=== PATIENT | male | born 1980 | race African-American/Black ===

== ENCOUNTER 2020-06-10 21:11 | Inpatient (IN) | payer OTHER ==
[~2020-06-10] VITALS: Ht 172.7 cm; Wt 78.0 kg
--- NOTE | 2020-06-10 21:36 | PHYS DOC ---
General Adult HPI: HPI: ".. I hurting.. since yesterday.. it been constant.. just getting worse...it was all over.. but now more in lower abdomen..." Patient is a 39 year old male employee who presents with above hx and complaints generalized abdomen pain, nausea, vomiting, there is some localization lower pelvic. No history of kidney stone. No history of colitis. No history of recent travel outside the [place] area no history of trauma. No history of bad food. Patient's not had pain like this before. Pain seems to start more on left of umbilicus but now seems to be across the lower abdomen. No history of previous surgeries. Admits to drinking heavily (ETOH) x 2 days prior to onset of abdomen pain. No history of colitis with him or family members. No history of kidney stones with him or family members. He denies p revious history of pancreatitis , colitis, gall bladder issues. . Patient denies any history of gallbladder disease. No recent travel. No assignments overseas. No specific ill contacts. Normally healthy. Review of Systems: Review of Systems: Constitutional: Denies fever or chills Eyes: Denies change in visual acuity HENT: Denies nasal congestion or sore throat Respiratory: Denies cough or shortness of breath Cardiovascular: Denies chest pain or edema GI: Complains of severe generalized abdominal pain, nausea. Denies, vomiting, bloody stools or diarrhea : Denies dysuria Musculoskeletal: Denies back pain or joint pain Integument: Denies rash Neurologic: Denies headache, focal weakness or sensory changes Endocrine: Denies polyuria or polydipsia Lymphatic: Denies swollen glands Psychiatric: Denies depression or anxiety Family History: Family History: Noncontributory to presentation Current Medications: Current Meds: See nursing for home meds Allergies: Allergies: No known drug allergies Physical Exam: PE: Constitutional: Well developed, well nourished, in acute distress, non-toxic appearance. [] HENT: Normocephalic, atraumatic, bilateral external ears normal, oropharynx dry,, no oral exudates, nose normal. [] Eyes: PERRLA, EOMI, conjunctiva normal, no discharge. [] Neck: Normal range of motion, no tenderness, supple, no stridor. [] Cardiovascular:Heart rate regular rhythm, no murmur [] Lungs & Thorax: Bilateral breath sounds clear to auscultation [] Abdomen: Bowel sounds hyperactive, soft, generalized tenderness, some rebound to lower abdomen below the umbilicus, distended, no masses, no pulsatile masses. [] Skin: Warm, dry, no erythema, no rash. [] Back: No tenderness, no CVA tenderness. [] Extremities: No tenderness, no cyanosis, no clubbing, ROM intact, no edema. No psoas sign. Neurologic: Alert and oriented X 3, normal motor function, normal sensory function, no focal deficits noted. [] Psychologic: Affect anxious, judgement normal, mood normal. [] EKG: EKG: [] Radiology/Procedures: Radiology/Procedures: [address] [id number] IMAGING REPORT Signed PATIENT: ANALY CASTILLO S ACCOUNT: [id number] : 1980 LOCATION: ER AGE: 39 SEX: M EXAM STATUS: REG ER ORD. PHYSICIAN: TEJA FENG MD REASON: Severe abdomen pain, nausea, vomiting PROCEDURE: ACUTE ABDOMEN SERIES Exam: Acute abdominal series INDICATION: Severe abdominal pain TECHNIQUE: Frontal view of chest with upright and supine views of the abdomen Comparisons: None FINDINGS: The cardiomediastinal silhouette and pulmonary vessels are within normal limits. The lung and pleural spaces are clear. Mildly dilated loop of small bowel noted in the left upper quadrant. No suspicious masses or calcifications. Visualized osseous structures are unremarkable. IMPRESSION: 1. Single focally dilated loop of small bowel in the left upper quadrant may relate to enteritis or developing obstruction. 2. No acute cardiopulmonary process. Electronically signed by: Malcolm Swift MD (06/10/2020 10:49 PM) [facility] DICTATED AND SIGNED BY: MALCOLM SWIFT MD DATE: 06/10/202247 CC: TEJA FENG MD; PCP,NO ~MTH0 0 48 IMAGING REPORT Signed PATIENT: ANALY CASTILLO S ACCOUNT: [id number] : 1980 LOCATION: ER AGE: 39 SEX: M EXAM STATUS: REG ER ORD. PHYSICIAN: TEJA FENG MD REASON: lower pelvic pain, nausea and vomiting Omni 300 60cc PROCEDURE: CT ABD PELV W/ORAL&IV CONTRAST Exam: CT abdomen/pelvis with intravenous contrast Indication: Lower pelvic pain, nausea and vomiting Comparison: None Technique: Helical CT imaging performed of the abdomen and pelvis after the intravenous administration of contrast. Sagittal and coronal reformats were obtained. One or more of the following individualized dose reduction techniques were utilized for this examination: 1. Automated exposure control 2. Adjustment of the mA and/or kV according to patient size 3. Use of iterative reconstruction technique. Findings: Lower chest: Lung bases are clear. Heart is normal in size. Liver: Normal. Gallbladder/Biliary Tree: Normal. Pancreas: The pancreas is edematous but enhances homogeneously. There is moderate peripancreatic fluid and fat stranding. No organized fluid collection. Spleen: Normal. Adrenal Glands: Normal. Kidneys/Ureters/Bladder: Kidneys are normal in size and enhance symmetrically. No hydronephrosis. Ureters and bladder are normal. Reproductive Organs: Normal. Stomach, small bowel, and colon: Stomach is distended with contrast. No small bowel obstruction. There is diffuse colonic wall thickening. Vasculature: Abdominal aorta is normal in caliber. Lymph Nodes: No lymphadenopathy. Peritoneum and retroperitoneum: Small amount of free fluid in the upper abdomen. No free air. Bones: No acute osseous abnormality there is a right paracentral disc protrusion at L2-3 L4 causing right lateral recess narrowing. Broad-based disc bulge at L4-L5 causing canal narrowing. No acute osseous abnormality. Miscellaneous: Bilateral inguinal hernias. Impression: 1. Uncomplicated acute pancreatitis. 2. Diffuse colonic wall thickening could be reactive or colitis. 3. Small bilateral fat-containing inguinal hernias. 4. Mild degenerative disc diseases with disc bulges or protrusions at L3-L4 and L4-L5. Electronically signed by: Rylee Perales MD (06/11/2020 12:50 AM) [id number] DICTATED AND SIGNED BY: RYLEE PERALES MD DATE: 06/11/20 0042 CC: TEJA FENG MD; PCP,NO ~MTH0 0 [][] [] Heart Score: Risk Factors: Risk Factors: DM, Current or recent (<one month) smoker, HTN, HLP, family history of CAD, obesity. Risk Scores: Score 0 - 3: 2.5% MACE over next 6 weeks - Discharge Home Score 4 - 6: 20.3% MACE over next 6 weeks - Admit for Clinical Observation Score 7 - 10: 72.7% MACE over next 6 weeks - Early Invasive Strategies Course & Med Decision Making: Course & Med Decision Making Pertinent Labs and Imaging studies reviewed. (See chart for details) Discussed presentation testing and treatment plan with Dr. Pelon Sierra. Admit to his service, NPO, pain meds and fluids. Impression: 1. Abdomen Pain 2. Alcohol induced pancreatitis 3. Dehydration 4. Elevated Lipase 5010, Amylase 438 [] Dragon Disclaimer: Dragon Disclaimer: This electronic medical record was generated, in whole or in part, using a voice recognition dictation system. Departure Departure: Referrals: PCP,NO (PCP) Dragon Disclaimer This chart was dictated in whole or in part using Voice Recognition software in a busy, high-work load, and often noisy Emergency Department environment. It may contain unintended and wholly unrecognized errors or omissions. Dragon Disclaimer This chart was dictated in whole or in part using Voice Recognition software in a busy, high-work load, and often noisy Emergency Department environment. It may contain unintended and wholly unrecognized errors or omissions. Dragon Disclaimer This chart was dictated in whole or in part using Voice Recognition software in a busy, high-work load, and often noisy Emergency Department environment. It may contain unintended and wholly unrecognized errors or omissions. TEJA FENG MD Jun 10, 2020 21:36
[2020-06-10] MEDS ORDERED: FAMOTIDINE 20 MG/2 ML VIAL IVP ONE (21:45)
[2020-06-10] MEDS ORDERED: IV RINGERS SOLUTION,LACTATED 1,000 ML IV SCH (21:45)
[2020-06-10] MEDS ORDERED: MORPHINE SULFATE 10 MG/ML SYRINGE. SQ ONE (21:45)
[2020-06-10 22:45] LABS: BASO % 0 % (0-3); EOS % 0 % (0-3); HEMATOCRIT 42.1 % (39.0-53.0); HEMOGLOBIN 13.9 g/dL (13.0-17.5); LYMPH # 0.4 x10^3/uL (1.0-4.8); LYMPH % 4 % (24-48); MEAN CORPUSCULAR HEMOGLOBIN 30 pg (25-35); MEAN CORPUSCULAR HGB CONC 33 g/dL (31-37); MEAN CORPUSCULAR VOLUME 90 fL (79-100); MONO # 0.6 x10^3/uL (0.0-1.1); MONO % 5 % (0-9); NEUT % 91 % (31-73); PLATELET COUNT 215 x10^3/uL (140-400); RED CELL DISTRIBUTION WIDTH 13.8 % (11.5-14.5)
--- NOTE | 2020-06-10 22:52 | RAD ---
Exam: Acute abdominal series INDICATION: Severe abdominal pain TECHNIQUE: Frontal view of chest with upright and supine views of the abdomen Comparisons: None FINDINGS: The cardiomediastinal silhouette and pulmonary vessels are within normal limits. The lung and pleural spaces are clear. Mildly dilated loop of small bowel noted in the left upper quadrant. No suspicious masses or calcific ations. Visualized osseous structures are unremarkable. IMPRESSION: 1. Single focally dilated loop of small bowel in the left upper quadrant may relate to enteritis or developing obstruction. 2. No acute cardiopulmonary process. Electronically signed by: Malcolm Carreno MD (06/10/2020 10:49 PM) [facility]
[2020-06-10] MEDS ORDERED: IOHEXOL 240 MG/ML 50ML VIAL. PO ONE (23:00)
[2020-06-10] MEDS ORDERED: IOHEXOL 300 MG/ML 75 ML VIAL. IV ONE (23:00)
[2020-06-10] MEDS ORDERED: ONDANSETRON PF 4 MG/2 ML VIAL. IVP ONE (23:00)
[2020-06-10 23:16] LABS: CALCIUM 9.3 mg/dL (8.5-10.1); CREATININE 1.6 mg/dL (0.7-1.3); GFR 58.5
[2020-06-10 23:19] LABS: ALBUMIN 3.9 g/dL (3.4-5.0); DIRECT BILIRUBIN 0.2 mg/dL (0.0-0.2); TOTAL PROTEIN 8.4 g/dL (6.4-8.2)
[2020-06-11] MEDS ORDERED: MORPHINE SULFATE 10 MG/ML SYRINGE. SQ ONE (00:45)
--- NOTE | 2020-06-11 00:52 | RAD ---
Exam: CT abdomen/pelvis with intravenous contrast Indication: Lower pelvic pain, nausea and vomiting Comparison: None Technique: Helical CT imaging performed of the abdomen and pelvis after the intravenous administratio n of contrast. Sagittal and coronal reformats were obtained. One or more of the following individualized dose reduction techniques were utilized for this examinat ion: 1. Automated exposure control 2. Adjustment of the mA and/or kV according to patient size 3. Use of iterative reconstruction technique. Findings: Lower chest: Lung bases are clear. Heart is normal in size. Liver: Normal. Gallbladder/Biliary Tree: Normal. Pancreas: The pancreas is edematous but enhances homogeneously. There is moderate peripancreatic flui d and fat stranding. No organized fluid collection. Spleen: Normal. Adrenal Glands: Normal. Kidneys/Ureters/Bladder: Kidneys are normal in size and enhance symmetrically. No hydronephrosis. Ure ters and bladder are normal. Reproductive Organs: Normal. Stomach, small bowel, and colon: Stomach is distended with contrast. No small bowel obstruction. Ther e is diffuse colonic wall thickening. Vasculature: Abdominal aorta is normal in caliber. Lymph Nodes: No lymphadenopathy. Peritoneum and retroperitoneum: Small amount of free fluid in the upper abdomen. No free air. Bones: No acute osseous abnormality there is a right paracentral disc protrusion at L2-3 L4 causing r ight lateral recess narrowing. Broad-based disc bulge at L4-L5 causing canal narrowing. No acute osse ous abnormality. Miscellaneous: Bilateral inguinal hernias. Impression: 1. Uncomplicated acute pancreatitis. 2. Diffuse colonic wall thickening could be reactive or colitis. 3. Small bilateral fat-containing inguinal hernias. 4. Mild degenerative disc diseases with disc bulges or protrusions at L3-L4 and L4-L5. Electronically signed by: Rylee Perales MD (06/11/2020 12:50 AM) [id number]
[2020-06-11] MEDS ORDERED: ONDANSETRON PF 4 MG/2 ML VIAL. IVP PRN (03:00)
[2020-06-11] MEDS ORDERED: MORPHINE SULFATE 10 MG/ML SYRINGE. SQ PRN (03:00)
[2020-06-11] MEDS ORDERED: ACETAMINOPHEN 325 MG TABLET PO PRN (03:00)
[2020-06-11] MEDS ORDERED: IV RINGERS SOLUTION,LACTATED 1,000 ML IV SCH (03:00)
[2020-06-11] MEDS ORDERED: FOLIC ACID 1 MG TABLET PO ONE (03:30)
[2020-06-11] MEDS ORDERED: MVI, ADULT NO.4 WITH VIT K 10 ML, THIAMINE INJ 100 MG in IV RINGERS SOLUTION,LACTATED 1... IV ONE ×2 (03:30→08:00)
[2020-06-11] MEDS ORDERED: cloNIDine TTS-2 1 PATCH PATCH TD ONE (03:45)
[2020-06-11] MEDS ORDERED: IV NORMAL SALINE 50ML 50 ML ONE (03:47)
[2020-06-11] MEDS ORDERED: cefTRIAXone SODIUM 1 GM VIAL ONE (03:47)
--- NOTE | 2020-06-11 05:35 | NUR ---
The patient, ANALY CASTILLO, 39 y/o, M admitted by PIA BRICEÑO MD, was given written information regarding hospital policies, unit procedures and contact persons. Valuables were checked and left with pt. Hx and med rx obtained.
[2020-06-11 05:47] VITALS: BP 137/101
[2020-06-11] MEDS ORDERED: DIPH25CA58 PO (06:09)
[2020-06-11] MEDS ORDERED: diphenhydrAMINE 50 MG/ML VIAL IVP PRN (06:30)
[2020-06-11] MEDS: IV NORMAL SALINE 1,000ML 1,000 ML IV SCH ×2 (07:28→18:33)
[2020-06-11] MEDS: MORPHINE SULFATE 10 MG/ML SYRINGE. IV PRN ×3 (07:29→21:53)
[2020-06-11] MEDS ORDERED: IPRATRPIUM/ALBUTEROL 0.5/2.5MG 3 ML NEBU. NEB SCH (08:00)
[2020-06-11] MEDS: FAMOTIDINE 20 MG/2 ML VIAL IVP SCH ×2 (08:01→21:53)
--- NOTE | 2020-06-11 08:46 | HP ---
ADMIT DATE: 06/11/2020 ATTENDING PHYSICIAN: Dr. Briceño. CHIEF COMPLAINT: Abdominal pain. 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 He comes in with a 2-day history of generalized diffuse abdominal pain, nausea, vomiting, localized radiating down to the pelvic area. He had no recent travel or COVID exposure. He has been drinking a bit heavily for the last 2 days prior to coming in. CT scan demonstrated diffuse pancreatitis without a phlegmon or abscess. His amylase and lipase were markedly elevated. He was admitted then with alcohol-related acute pancreatitis. PAST MEDICAL HISTORY: Unremarkable for any chronic illnesses. He has been quite healthy. 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 He is not on any prescription meds. ALLERGIES: He has no known drug allergies. SOCIAL HISTORY: Parents are alive in their mid 60s. He is single. He has 2 children, 2 boys ages 11 and 8. They lived with her mother in [place]. Drinking history as noted. He is a nonsmoker. 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 He is about to be promoted to ____. REVIEW OF SYSTEMS: Significant for the problems that brought him here. All other systems reviewed and turned to be negative. PHYSICAL EXAMINATION: GENERAL: When I saw him, this is a pleasant gentleman who was alert. Affect is appropriate. He did not appear depressed. INITIAL VITAL SIGNS: Showed a blood pressure 137/101, pulse is 110 and regular, temperature 98.6 degrees Fahrenheit, oxygen saturation 100% on room air. HEENT: Head is without trauma. Pupils are reactive. Sclerae nonicteric. The oropharynx is clear. NECK: Supple, no bruits. LUNGS: Otherwise clear. CARDIOVASCULAR: Showed regular heart tones. No gallops. ABDOMEN: Soft. Minimal guarding. No rebound tenderness. Bowel sounds are hypoactive. EXTREMITIES: Showed no cyanosis or edema. NEUROLOGIC: Focally intact. Speech is fluent. Manager Sap intact. SKIN: Warm and dry. PERTINENT LABORATORY STUDIES: The amylase on admission was 438, lipase was 5000. Electrolytes are within range. Creatinine slightly elevated at 1.6 mg/dL. No previous labs for comparison. CT of the abdomen showed uncomplicated acute pancreatitis, diffuse colonic wall thickening, which could be reactive, small bilateral fat-containing inguinal hernia. Mild degenerative disk disease with bulging at L3-L4 and L4-L5. ASSESSMENT: 1. A 39-year-old gentleman with alcoholic pancreatitis. 2. Mild elevation of creatinine. 3. Chronic alcoholism. PLAN: 1. Admit to the inpatient unit. 2. N.p.o. except for ice chips. 3. Pain and nausea control. 4. IV hydration. 5. Follow up chemistries. 6. We will advance diet when he is clinically able to tolerate foods. PIA BRICEÑO MD DR: BRENDA/yulisa JOB#: [id number] / [id number]
[2020-06-11] MEDS ORDERED: IPRATRPIUM/ALBUTEROL 0.5/2.5MG 3 ML NEBU. NEB PRN (10:00)
[2020-06-11 11:00] VITALS: BP 158/86
[2020-06-11 14:32] VITALS: BP 136/85
[2020-06-11 19:10] VITALS: BP 148/96
[2020-06-12] MEDS: IV NORMAL SALINE 1,000ML 1,000 ML IV SCH ×2 (05:26→22:34)
[2020-06-12] MEDS: MORPHINE SULFATE 10 MG/ML SYRINGE. IV PRN ×2 (06:05→23:00)
[2020-06-12 06:37] VITALS: BP 145/105
[2020-06-12 06:54] LABS: BASO # 0.1 x10^3/uL (0.0-0.2); BASO % 1 % (0-3); EOS # 0.4 x10^3/uL (0.0-0.7); EOS % 3 % (0-3); HEMATOCRIT 35.4 % (39.0-53.0); HEMOGLOBIN 11.5 g/dL (13.0-17.5); LYMPH # 0.9 x10^3/uL (1.0-4.8); LYMPH % 8 % (24-48); MEAN CORPUSCULAR HEMOGLOBIN 30 pg (25-35); MEAN CORPUSCULAR HGB CONC 33 g/dL (31-37); MEAN CORPUSCULAR VOLUME 91 fL (79-100); MONO # 0.5 x10^3/uL (0.0-1.1); MONO % 4 % (0-9); NEUT # 8.9 x10^3uL (1.8-7.7); NEUT % 84 % (31-73); PLATELET COUNT 132 x10^3/uL (140-400); RED CELL DISTRIBUTION WIDTH 13.5 % (11.5-14.5); WHITE BLOOD COUNT 10.7 x10^3/uL (4.0-11.0)
[2020-06-12 07:07] LABS: CALCIUM 8.2 mg/dL (8.5-10.1); CREATININE 1.2 mg/dL (0.7-1.3); GFR 81.6; POTASSIUM 3.5 mmol/L (3.5-5.1)
--- NOTE | 2020-06-12 09:39 | PN ---
DATE: 06/12/2020 ATTENDING PHYSICIAN: Dr. Briceño. SUBJECTIVE: Doing better. He is up and ambulating. No further significant pain or nausea. He tolerated some clear liquids, 7-up, broth without any nausea or pain. OBJECTIVE FINDINGS: VITAL SIGNS: Blood pressure marginally high at 145/105, pulse is 110 and regular, temperature 99.6 degrees Fahrenheit, oxygen saturation 94% on room air. HEENT: Head is without trauma. Pupils are reactive. Sclerae nonicteric. The oropharynx is clear. NECK: Supple, no bruits identified. LUNGS: Clear. CARDIOVASCULAR: Regular heart tones. ABDOMEN: Soft. Minimal guarding. Hypoactive bowel sounds. No masses, no rebound tenderness. EXTREMITIES: Without edema. NEUROLOGIC: Focally intact. ASSESSMENT: 1. A 39-year-old gentleman with alcoholic pancreatitis. 2. Associated nausea and vomiting, improved. 3. Hypertension. PLAN: 1. Advance diet as tolerated. 2. Decrease IV rate. 3. Pain and nausea control. PIA BRICEÑO MD DR: BRENDA/yulisa JOB#: [id number] / [id number]
[2020-06-12] MEDS: FAMOTIDINE 20 MG/2 ML VIAL IVP SCH ×2 (10:18→22:36)
--- NOTE | 2020-06-12 10:30 | NUR ---
PT WAS ABLE TO SHOWER AND WALK AROUND THE UNIT THIS AM. PT DENIES PAIN AT THIS TIME AND IS RESTING COMFORTABLY IN BED. WILL CTM.
[2020-06-12 11:09] VITALS: BP 159/89
[2020-06-12 19:00] VITALS: BP 162/100
[2020-06-13] MEDS: MORPHINE SULFATE 10 MG/ML SYRINGE. IV PRN (05:08)
[2020-06-13 05:15] VITALS: BP 171/94
[2020-06-13 06:17] LABS: CALCIUM 8.3 mg/dL (8.5-10.1); CREATININE 1.2 mg/dL (0.7-1.3); GFR 81.6
[2020-06-13] MEDS: FAMOTIDINE 20 MG/2 ML VIAL IVP SCH (07:46)
--- NOTE | 2020-06-13 09:37 | DS ---
DATE OF DISCHARGE: 06/13/2020 ATTENDING PHYSICIAN: Dr. Briceño. FINAL DISCHARGE DIAGNOSES: 1. Acute pancreatitis. 2. Acute alcohol-related pancreatitis. 3. Mild dehydration. 4. Hypokalemia, asymptomatic, treated. 5. Associated nausea and abdominal pain. 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 He has been drinking heavily the last several days. He comes in with diffuse abdominal pain, nausea, vomiting and biochemical evidence as well as CT abdomen evidence of acute pancreatitis. PHYSICAL EXAMINATION: Please see the dictated note. PERTINENT LABORATORY AND X-RAY IMAGING STUDIES: Imaging studies as noted consistent with uncomplicated pancreatitis. Admission lipase was 5010. Amylase 438. Creatinine had been 1.6 g/dL, followup creatinine repeated was down to 1.3 with hydration. Potassium was 4.0 with dilution in fluids, it came down to 3.0. He is asymptomatic, no arrhythmias. Supplemental potassium was administered and this will be followed as an outpatient. COURSE IN THE HOSPITAL: The patient was admitted and started on IV hydration, pain and nausea control and serial chemistries. He did well. Diet was advanced initially, a clear liquids, full liquids and then soft mechanical diet. By the fourth hospital day, his vital signs are stable. His abdomen was soft. He was afebrile. Symptoms have resolved and he was ready for discharge. Strong encouragement to avoid further alcohol whether he quit drinking remains to be seen. I did write a script for K-Dur 20 mEq 1 daily for 7 days and I suggested a followup chemistry as an outpatient in 10 days. In addition, I wrote a script for Percocet 10/325 one every 6 hours p.r.n. pain. The patient was then discharged from our hospital in stable condition with explicit instructions and followup care. Total discharge time spent 39 minutes. PIA BRICEÑO MD DR: BRENDA/yulisa JOB#: [id number] / [id number]
--- NOTE | 2020-06-13 09:43 | NUR ---
DISCHARGE-PT IV DISCONTINUED AT THIS TIME. PAPERWORK FOR DISCHARGE COMPLETE, ALL POSSESSIONS GATHERED FOR PATIENT. PT AMBULATORY FOR DISCHARGE. AWAITING ARRIVAL OF [facility].
== END 2020-06-13 10:13 | disposition home or self-care (01) | DRG 438 ==
LOC: ER 21:11 → 1 SOUTH 06-11 03:00
PROVIDERS: ADMIT Hospitalist; ATTEND Hospitalist
DX: K85.20 Alcohol induced acute pancreatitis without necrosis or infection (principal); N17.0 Acute kidney failure with tubular necrosis; E86.0 Dehydration; E87.6 Hypokalemia; I10 Essential (primary) hypertension; K40.20 Bilateral inguinal hernia, without obstruction or gangrene, not specified as recurrent; M51.36 Other intervertebral disc degeneration, lumbar region; F10.20 Alcohol dependence, uncomplicated; Y90.9 Presence of alcohol in blood, level not specified
CPT/HCPCS: 36415; 36600; 74022; 74177; 80048; 80076; 82150; 82550; 83690; 84484; 85025; 85610; 85730; 96361; 96365; 96368; 96372; 96375; J0696; J1200; J2270; J2405; J3490; J7120; Q9966; Q9967; J7030

== ENCOUNTER 2020-07-18 10:06 | Inpatient (IN) | payer OTHER ==
[~2020-07-18] VITALS: Ht 172.7 cm; Wt 75.7 kg
[~2020-07-18 10:06] MED LIST: DIPH25CA58 PO
[2020-07-18] MEDS ORDERED: ONDANSETRON PF 4 MG/2 ML VIAL. IVP ONE (10:45)
--- NOTE | 2020-07-18 10:55 | PHYS DOC ---
Past History Past Medical History: No Pertinent History Additional Past Medical Histor: ETOH- 3-4 drinks, 3X a week Past Surgical History: Other Additional Past Surgical Histo: wisdom teeth extraction Alcohol Use: Occasionally Additional Alcohol Information: ETOH- 3-4 drinks, 3X a week General Adult EDM: Chief Complaint: ABDOMINAL PAIN HPI: HPI: Patient is a 39-year-old male coming for periumbilical abdominal pain starting about 2 days ago. States he tried to take his oxycodone without improvement. He has also had numerous episodes of nonbloody, nonbilious emesis. States had some chills but no fevers. No cough or shortness of breath. No change in urination. Last bowel movement 3 days ago, states he normally has, every 2 to 3 days. No known sick contacts. Was hospitalized by weeks ago for pancreatitis and states this feels similar. States his pain is worse and is worse with movement. Denies any history of gallbladder problems. Denies any alcohol use since his last episode of pancreatitis. Review of Systems: Review of Systems: All other systems within normal limits except for as noted in the HPI Current Medications: Current Meds: Current Medications Medications (Trade) Dose Ordered Sig/Gilberto Start Time Stop Time Status Last Admin Dose Admin Fentanyl Citrate (Fentanyl 2ml Vial) 50 mcg 1X ONCE 07/18/20 10:45 07/18/20 10:46 UNV Iohexol (Omnipaque 300 Mg/ml) 75 ml 1X ONCE 07/18/20 11:00 07/18/20 11:01 UNV Ondansetron HCl (Zofran) 4 mg 1X ONCE 07/18/20 10:45 07/18/20 10:46 UNV Allergies: Allergies: Allergies Coded Allergies Type Severity Reaction Last Updated Verified No Known Drug Allergies 07/18/20 No Physical Exam: PE: Constitutional: Well developed, well nourished, no acute distress, non-toxic appearance. [] HENT: Normocephalic, atraumatic, bilateral external ears normal, nose normal. [] Eyes: PERRLA, conjunctiva normal, no discharge. [] Neck: No rigidity, supple, no stridor. [] Cardiovascular: Regular rate and rhythm, brisk cap refill [] Lungs & Thorax: Non labored symmetric respirations, no tachypnea or respiratory distress [] Abdomen: Soft, nondistended, voluntary guarding, generalized tenderness, no rebound.. Skin: Warm, dry, no erythema, no rash. [] Back: Unremarkable Extremities: No deformities, range of motion grossly intact, no lower extremity edema [] Neurologic: Alert and oriented X 3, no focal deficits noted. [] Psychologic: Affect normal, judgement normal, mood normal. [] Current Patient Data: Vital Signs: Vital Signs Date Time Temp Pulse Resp B/P (MAP) Pulse Ox O2 Delivery O2 Flow Rate FiO2 07/18/20 10:15 98.5 111 20 156/104 (121) 99 Room Air EKG: EKG: [] Radiology/Procedures: Radiology/Procedures: EXAM: CT Abdomen and Pelvis with IV contrast INDICATION: Reason: periumbilical pain / Spl. Instructions: / History: TECHNIQUE: Multi-detector row CT images were acquired from the lung bases through the abdomen and pelvis with the use of IV contrast. Sagittal and coronal images were acquired from the transaxial data. All CT scans performed at this facility utilize dose optimization techniques as appropriate to the exam, including the following: Automated exposure control and adjustment of the mA and/or KV according to patient size (this includes techniques or standardized protocols for targeted exams where dose is indication/reason for exam). IV CONTRAST: Administered ORAL CONTRAST: Not administered COMPARISON: 06/11/[address] with oral and IV contrast. FINDINGS: LOWER CHEST: Unremarkable LIVER: Unremarkable BILIARY SYSTEM: Gallbladder is unremarkable. Bile ducts are not dilated. PANCREAS: Marked interval improvement without complete resolution in peripancreatic soft tissue stranding noted previously. SPLEEN: Unremarkable ADRENALS: Unremarkable KIDNEYS & URETERS: Unremarkable BLADDER: Moderately distended. REPRODUCTIVE ORGANS: Prostate measures 4.3 cm in diameter. GASTROINTESTINAL: The stomach and large bowel are unremarkable. The duodenum and proximal jejunum show mild wall thickening that is new from previous exam. Rest of the small bowel is unremarkable. The appendix is normal. MESENTERY/PERITONEUM/RETROPERITONEUM: Unremarkable VASCULAR: Unremarkable LYMPH NODES: No adenopathy OSSEOUS & SOFT TISSUES: 1.9 cm long fat-containing periumbilical hernia is present with an 8 mm neck, best illustrated on sagittal image 33 of series 4. IMPRESSION: 1. Residual findings of acute pancreatitis with interval mild wall thickening in the jejunum and duodenum that could reflect edema (or angioedema). No findings of bowel obstruction or perforation. 2. A small fat-containing umbilical hernia is present without associated soft tissue stranding. It appears unchanged from prior. Correlate clinically for any relevance to patient's abdominal pain. [] Heart Score: Risk Factors: Risk Factors: DM, Current or recent (<one month) smoker, HTN, HLP, family history of CAD, obesity. Risk Scores: Score 0 - 3: 2.5% MACE over next 6 weeks - Discharge Home Score 4 - 6: 20.3% MACE over next 6 weeks - Admit for Clinical Observation Score 7 - 10: 72.7% MACE over next 6 weeks - Early Invasive Strategies Course & Med Decision Making: Course & Med Decision Making Pertinent Labs and Imaging studies reviewed. (See chart for details) [] Dragon Disclaimer: Dragon Disclaimer: This electronic medical record was generated, in whole or in part, using a voice recognition dictation system. Departure Departure: Impression: Primary Impression: Acute pancreatitis Disposition: ADMITTED INPT THIS HOSP Admitting Physician: Candy Reis Condition: STABLE Referrals: ADORE MELÉNDEZ DO (PCP) Scripts No Active Prescriptions or Reported Meds FABIOLA BRYAN MD Jul 18, 2020 10:55
[2020-07-18] MEDS ORDERED: IOHEXOL 300 MG/ML 75 ML VIAL. IV ONE (11:00)
[2020-07-18 11:16] LABS: BASO % 0 % (0-3); EOS # 0.1 x10^3/uL (0.0-0.7); EOS % 1 % (0-3); HEMOGLOBIN 12.4 g/dL (13.0-17.5); LYMPH # 0.7 x10^3/uL (1.0-4.8); LYMPH % 9 % (24-48); MEAN CORPUSCULAR HEMOGLOBIN 29 pg (25-35); MEAN CORPUSCULAR HGB CONC 33 g/dL (31-37); MEAN CORPUSCULAR VOLUME 89 fL (79-100); MONO # 0.5 x10^3/uL (0.0-1.1); MONO % 7 % (0-9); NEUT % 82 % (31-73); PLATELET COUNT 171 x10^3/uL (140-400); RED BLOOD COUNT 4.25 x10^6/uL (4.30-5.70); RED CELL DISTRIBUTION WIDTH 14.1 % (11.5-14.5); WHITE BLOOD COUNT 7.3 x10^3/uL (4.0-11.0)
[2020-07-18 11:29] LABS: CALCIUM 9.5 mg/dL (8.5-10.1); CREATININE 1.1 mg/dL (0.7-1.3); GFR 90.2; POTASSIUM 3.8 mmol/L (3.5-5.1)
[2020-07-18 11:36] LABS: ALBUMIN 3.9 g/dL (3.4-5.0); TOTAL BILIRUBIN 1.2 mg/dL (0.2-1.0)
--- NOTE | 2020-07-18 11:37 | RAD ---
EXAM: CT Abdomen and Pelvis with IV contrast INDICATION: Reason: periumbilical pain / Spl. Instructions: / History: TECHNIQUE: Multi-detector row CT images were acquired from the lung bases through the abdomen and pel vis with the use of IV contrast. Sagittal and coronal images were acquired from the transaxial data. All CT scans performed at this facility utilize dose optimization techniques as appropriate to the ex am, including the following: Automated exposure control and adjustment of the mA and/or KV according to patient size (this includes techniques or standardized protocols for targeted exams where dose is indication/reason for exam). IV CONTRAST: Administered ORAL CONTRAST: Not administered COMPARISON: 06/11/[address] with oral and IV contrast. FINDINGS: LOWER CHEST: Unremarkable LIVER: Unremarkable BILIARY SYSTEM: Gallbladder is unremarkable. Bile ducts are not dilated. PANCREAS: Marked interval improvement without complete resolution in peripancreatic soft tissue stra nding noted previously. SPLEEN: Unremarkable ADRENALS: Unremarkable KIDNEYS & URETERS: Unremarkable BLADDER: Moderately distended. REPRODUCTIVE ORGANS: Prostate measures 4.3 cm in diameter. GASTROINTESTINAL: The stomach and large bowel are unremarkable. The duodenum and proximal jejunum aida w mild wall thickening that is new from previous exam. Rest of the small bowel is unremarkable. The a ppendix is normal. MESENTERY/PERITONEUM/RETROPERITONEUM: Unremarkable VASCULAR: Unremarkable LYMPH NODES: No adenopathy OSSEOUS & SOFT TISSUES: 1.9 cm long fat-containing periumbilical hernia is present with an 8 mm neck , best illustrated on sagittal image 33 of series 4. IMPRESSION: 1. Residual findings of acute pancreatitis with interval mild wall thickening in the jejunum and duod enum that could reflect edema (or angioedema). No findings of bowel obstruction or perforation. 2. A small fat-containing umbilical hernia is present without associated soft tissue stranding. It ap pears unchanged from prior. Correlate clinically for any relevance to patient's abdominal pain. Electronically signed by: Mike Estrella MD (07/18/2020 11:35 AM) [id number]
[2020-07-18] MEDS ORDERED: ONDANSETRON PF 4 MG/2 ML VIAL. IVP PRN (12:15)
[2020-07-18] MEDS ORDERED: ACETAMINOPHEN 325 MG TABLET PO PRN (12:15)
[2020-07-18 12:31] LABS: BACTERIA,URINE 0 /HPF (0-FEW); BILIRUBIN,URINE NEG (NEG); CLARITY,URINE CLEAR; COLOR,URINE YELLOW; GLUCOSE,URINE NEG (NEG); NITRITE,URINE NEG (NEG); RBC,URINE RARE /HPF (0-2); UROBILINOGEN,URINE 0.2 mg/dL (0.2 mg/dL); WBC,URINE 0 /HPF (0-4)
[2020-07-18] MEDS: IV NORMAL SALINE 1,000ML 1,000 ML IV SCH ×2 (12:32→22:15)
[2020-07-18] MEDS: MORPHINE SULFATE 4 MG/ML DISP.SYRIN. IVP PRN ×2 (12:34→20:34)
[2020-07-18 13:37] VITALS: BP 168/96
--- NOTE | 2020-07-18 14:11 | NUR ---
Admission Note Pt admitted from ED arrived to floor via EMS bed At 1305. Pt reports pancreatic pain with recent admission of pancreatitis.
--- NOTE | 2020-07-18 17:03 | HP ---
ADMIT DATE: 07/18/2020 HISTORY OF PRESENT ILLNESS: The patient is a 39-year-old -[place] male patient who came to the Emergency Room with a complaint of abdominal pain. The pain is mostly in the periumbilical area, started about 2 days ago. States he tried to take his oxycodone without improvement. He also had numerous episodes of nonbloody, nonbilious emesis. He had some chills, but no fever. No cough or shortness of breath. No change in urination. His last bowel movement was about 3 days ago. States he normally has every 2-3 days. No known sick contact. He was hospitalized in May for acute pancreatitis and he feels that his pain is very similar to that episode. His pain is worse with movement. He denies any history of gallbladder problems. Denies any alcohol use. He was extensively investigated in the Emergency Room. His blood count was unremarkable. His chemistry showed that his lipase was elevated at 3591. His CT scan of the abdomen and pelvis showed that the liver is unremarkable. Biliary tree and gallbladder is unremarkable. Bile ducts are not dilated. Pancreas, marked interval improvement without complete resolution in the peripancreatic soft tissue stranding noted previously. He was also found to have a small fat-containing umbilical hernia present without associated soft tissue stranding and appears unchanged from prior. The patient was admitted with acute pancreatitis, was kept n.p.o., started on IV fluids, pain medication, antiemetic. We will arrange for him to have abdominal ultrasound and fasting lipid profile tomorrow. PAST MEDICAL HISTORY: Significant for hypertension and one episode of pancreatitis in May. PAST SURGICAL HISTORY: [place] teeth extraction. MEDICATIONS: He is on Benadryl [id number]. He is on Percocet 10 mg and potassium chloride, prescribed to him by Dr. Jose. FAMILY HISTORY: He has 3 brothers, older and healthy. Father is alive at the age of 65 and has hypertension. Mother is alive at age of 65 and has hypertension. SOCIAL HISTORY: He is and has 2 sons. He smokes cigars. Last drink was last . He normally drinks 1-2 glasses of wine 3 times per week. He does not use any drugs. REVIEW OF SYSTEMS: As per history of present illness. PHYSICAL EXAMINATION: GENERAL: On arrival to the Emergency Room, he looked well and was clearly in no apparent respiratory distress. No pallor, jaundice, cyanosis, or thyromegaly. No jugular venous distention. No limb edema. VITAL SIGNS: His heart rate was 111, blood pressure 156/104, temperature was 98.5, respiratory rate 20, and oxygen saturation was 99%. HEAD, EYES, EARS, NOSE AND THROAT: Normocephalic, atraumatic. NECK: Supple. HEART: Showed normal first and second heart sounds. No gallop, rub, or murmur. CHEST: Clear to auscultation. No crepitation or rhonchi. ABDOMEN: Distended with tenderness mostly in the epigastric area. There is no guarding or rigidity. No organomegaly. All hernial orifices intact. Bowel sounds normal. NEUROLOGIC: He is awake, alert, responding appropriately. All cranial nerves intact. EXTREMITIES: He moves extremities without difficulty. He ambulates without assistance or assistive devices. LABORATORY DATA: Showed a white cell count 7300, hemoglobin 12, hematocrit 38, MCV 89, and platelet count of 171,000. His chemistry showed a serum sodium 140, potassium 3.8, chloride 101, bicarbonate 29, anion gap of 10, BUN 12, creatinine 1.1, estimated GFR was 90 mL per minute. His glucose is 122, lactic acid 1, calcium was 9.5. Total bilirubin 1.2, AST 51, ALT 45, alkaline phosphatase 100, total protein was 8, and albumin was 3.9. His lipase was 3591. ASSESSMENT AND PLAN: In summary, this is a 39-year-old -[place] male patient who yet again comes with another episode of pancreatitis. His last alcohol drink was last and symptoms started on Saturday. He had similar episode in 05/2020. PLAN: My plan is to continue with IV fluid, IV antibiotic, and antiemetic. We will arrange for him to have abdominal ultrasound tomorrow as well as fasting lipid profile to eliminate the possibility of hypertriglyceridemia and decide on further management accordingly. HOA GOTTI MD DR: PHILIP/yulisa JOB#: [id number] / [id number]
[2020-07-18 19:04] VITALS: BP 170/95
[2020-07-18 22:39] VITALS: BP 150/97
[2020-07-19 05:48] VITALS: BP 150/111
[2020-07-19 07:01] LABS: BASO % 1 % (0-3); EOS # 0.3 x10^3/uL (0.0-0.7); EOS % 5 % (0-3); HEMATOCRIT 38.4 % (39.0-53.0); HEMOGLOBIN 12.4 g/dL (13.0-17.5); LYMPH # 0.9 x10^3/uL (1.0-4.8); LYMPH % 17 % (24-48); MEAN CORPUSCULAR HEMOGLOBIN 29 pg (25-35); MEAN CORPUSCULAR HGB CONC 32 g/dL (31-37); MEAN CORPUSCULAR VOLUME 90 fL (79-100); MONO # 0.3 x10^3/uL (0.0-1.1); MONO % 6 % (0-9); NEUT # 3.7 x10^3uL (1.8-7.7); NEUT % 71 % (31-73); PLATELET COUNT 158 x10^3/uL (140-400); RED BLOOD COUNT 4.27 x10^6/uL (4.30-5.70); WHITE BLOOD COUNT 5.2 x10^3/uL (4.0-11.0)
[2020-07-19 07:06] LABS: CALCIUM 9.1 mg/dL (8.5-10.1); CREATININE 1.1 mg/dL (0.7-1.3); GFR 90.2; POTASSIUM 3.2 mmol/L (3.5-5.1)
[2020-07-19 09:37] VITALS: BP 155/96
[2020-07-19] MEDS: IV NORMAL SALINE 1,000ML 1,000 ML IV SCH (10:13)
--- NOTE | 2020-07-19 11:00 | RAD ---
Right upper quadrant abdominal ultrasound compared to CT scan of the abdomen and pelvis dated July 182020 for recurrent acute pancreatitis. TECHNIQUE AND FINDINGS: Real-time grayscale and color Doppler evaluation of the abdominal organs is p erformed. Midline structures including the pancreas, aorta, and IVC are entirely obscured by overlyin g bowel gas, limiting evaluation. IVC is demonstrably patent by spectral Doppler however. No ascites is seen. No abdominal masses are evident. The liver measures 14.2 cm and is normal in appearance with no intra or extra hepatic biliary ductal dilatation. Common bile duct measures 4 mm in diameter. Gal lbladder is normal in appearance with no shadowing stones or sludge. No sonographic [place] sign was e licited. The right kidney measures 10.6 x 6.3 x 4.8 cm and is normal with no hydronephrosis. Portal v ein is patent and hepatopedal. IMPRESSION: 1. Limited evaluation of the midline structures including the pancreas due to overlying bowel gas. 2. No evidence of acute cholecystitis. Electronically signed by: Manas Wood MD (07/19/2020 10:58 AM) [id number]
[2020-07-19 15:33] VITALS: BP 155/104
--- NOTE | 2020-07-19 15:49 | PN ---
DATE: 07/19/2020 SUBJECTIVE: The patient is sitting on the edge of the bed comfortably, in no apparent distress. He denied any abdominal pain except when he had ultrasound. Denied any nausea or vomiting. He has not used any of his pain medication since last night. PHYSICAL EXAMINATION: GENERAL: When I saw him this afternoon, he looked well and was clearly in no apparent respiratory distress. No pallor, jaundice, cyanosis or thyromegaly. No jugular venous distension. No lower limb edema. VITAL SIGNS: His heart rate was 68, blood pressure 155/104, temperature 97.8, respiratory rate 20, and oxygen saturation was 99%. The rest of clinical exam is stable. His intake and output are incompletely recorded. LABORATORY DATA: Her lab work this morning showed a serum sodium 143, potassium 3.2, chloride 104, bicarbonate 27, anion gap of 12, BUN 8, creatinine 1.1, estimated GFR was 90 mL per minute. His glucose was 95, calcium was 9.1. His serum triglycerides 118, total cholesterol 173, LDL was 84, VLDL was 123, HDL was 66 and ratio was 2. His lipase is down actually from 3591 down to 1500. ASSESSMENT: Acute pancreatitis, most likely alcohol induced. His abdominal ultrasound showed no evidence of acute cholecystitis and lipid profile showed no evidence of hypertriglyceridemia as well as normal calcium of 9.1. PLAN: My plan is to start him on a clear liquid diet and start him also on his antihypertensive medication. Replenish his potassium and hopefully discharge him home tomorrow. HOA GOTTI MD DR: PHILIP/yulisa JOB#: [id number] / [id number]
[2020-07-19] MEDS ORDERED: amLODIPine BESYLATE 5 MG TABLET PO ONE (16:00)
[2020-07-19] MEDS ORDERED: POTASSIUM CHLORIDE 20 MEQ TABLET.ER. PO ONE (16:00)
--- NOTE | 2020-07-19 17:13 | NUR ---
SHIFT NOTE-PATIENT HAS NOT REPORTED PAIN TODAY. STATED HE HAD SOME DISCOMFORT DURING HIS RADIOLOGICAL EXAM, WHEN HE WAS TAKING DEEP BREATHS. DIET ADVANCED TO CLEAR LIQUIDS. PT VERBALIZES UNDERSTANDING TO TAKE SLOW, ET PAY ATTENTION TO CRAMPING ET ONSET OF PAIN DURING PO INTAKES. PT SHOWERS WITH NO ASSISTANCE FROM STAFF. IVF CONTINUES.
[2020-07-19 19:48] VITALS: BP 118/68
[2020-07-19] MEDS: POTASSIUM CHLORIDE 20 MEQ TABLET.ER. PO SCH (21:27)
[2020-07-20 05:34] VITALS: BP 144/92
[2020-07-20 07:29] LABS: CALCIUM 8.8 mg/dL (8.5-10.1); CREATININE 0.9 mg/dL (0.7-1.3); GFR 113.7; POTASSIUM 3.3 mmol/L (3.5-5.1)
[2020-07-20] MEDS: POTASSIUM CHLORIDE 20 MEQ TABLET.ER. PO SCH (08:26)
--- NOTE | 2020-07-20 08:41 | NUR ---
DISCHARGE NOTE- PIV ET IVF DISCONTINUED, PT AMBULATES TO FRONT DOOR. 3 PRESCRIPTIONS, ET DISCHARGE INFORMATION COVERED WITH PATIENT.
--- NOTE | 2020-07-20 12:27 | DS ---
DATE OF DISCHARGE: 07/20/2020 ATTENDING PHYSICIAN: Dr. Reis. FINAL DISCHARGE DIAGNOSES: 1. Alcoholic pancreatitis. 2. Chronic alcoholism. 3. Abdominal pain, resolved. 4. Hypertension, labile. 5. Underlying depression. 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 He was admitted then with abdominal pain and pancreatitis. His initial lipase was 3591. PHYSICAL EXAMINATION: Please see the dictated note. PERTINENT LABORATORY AND X-RAY STUDIES: Abdominal and pelvic CT showed residual findings of acute pancreatitis, mild thickening of the jejunum. No obstruction identified. Small fat containing umbilical hernia without any changes. Lipase is noted. Other laboratories showed hemoglobin 12.4 grams, white count 7300. Electrolytes, BUN and creatinine within normal range. Potassium 3.8 mEq. COURSE IN THE HOSPITAL: The patient was admitted. He was kept on n.p.o. and diet gradually advanced and he tolerated this. Pain and nausea controlled. He did well. By the next hospital day, he was doing better. Abdominal symptoms resolved. He was eating. He had no symptoms. He wanted to go home. I felt this is reasonable. Strong encouragement to take his medications. I wrote him scripts for atenolol 100 mg p.o. daily for blood pressure, Percocet 10/325 one every 6 hours p.r.n. pain and Zofran 4 mg p.o. q. 6 hours p.r.n. nausea. He will follow up with his PCP. He was discharged then from our hospital in stable condition with explicit instructions and followup care. PIA BRICEÑO MD DR: BRENDA/yulisa JOB#: [id number] / [id number] HOA Guan MD
== END 2020-07-20 08:41 | disposition home or self-care (01) | DRG 440 ==
LOC: ER 10:06 → 1 SOUTH 12:07
PROVIDERS: ADMIT Internal Medicine; ATTEND Internal Medicine
DX: K85.20 Alcohol induced acute pancreatitis without necrosis or infection (principal); E11.9 Type 2 diabetes mellitus without complications; F10.20 Alcohol dependence, uncomplicated; F17.290 Nicotine dependence, other tobacco product, uncomplicated; F32.9 Major depressive disorder, single episode, unspecified; I10 Essential (primary) hypertension; K42.9 Umbilical hernia without obstruction or gangrene; Z82.49 Family history of ischemic heart disease and other diseases of the circulatory system; Z79.899 Other long term (current) drug therapy
CPT/HCPCS: 36415; 74177; 76705; 80048; 80053; 80061; 81001; 83605; 83690; 84484; 85025; 96361; 96374; 96375; 99406; G0480; J2270; J2405; J3010; Q9967; 99285-25; J7030

== ENCOUNTER → 2020-09-07 | Day surgery (SDC) | payer OTHER ==
[2020-09-07 14:10] VITALS: BP 144/78
== END | disposition home or self-care (01) ==
LOC: SURG 13:23
PROVIDERS: ATTEND Anesthesiology
DX: M54.16 Radiculopathy, lumbar region (principal); I10 Essential (primary) hypertension; E11.9 Type 2 diabetes mellitus without complications; F32.9 Major depressive disorder, single episode, unspecified; F10.20 Alcohol dependence, uncomplicated; Z86.79 Personal history of other diseases of the circulatory system; Z82.49 Family history of ischemic heart disease and other diseases of the circulatory system
CPT/HCPCS: 99214; G0463